=== PATIENT | male | born 1970 | race Caucasian/White ===

== ENCOUNTER 2020-10-21 15:10 | Day surgery (SDC) | payer OTHER ==
[2020-10-13 08:43] VITALS: BMI 29.6
[~2020-10-21 15:10] MED LIST: DEXAMETHASONE SOD PHOSPHATE 4 MG/ML 1 ML VIAL IV ONE; HYDROmorphone 0.5 MG/0.5 ML SYRINGE IVP PRN; LACTATED RINGERS 1,000 ML IV SCH; LIDOCAINE 1% (10MG/ML) FOR IV START INTRADERMA PRN; ONDANSETRON 4 MG/2 ML VIAL IVP ONE; SCOPOLAMINE 1.5MG/72HR PATCH TRANSDERM ONE
[2020-10-21] MEDS ORDERED: MIDAZOLAM 2 MG/2 ML VIAL IVP ONE (15:52)
[2020-10-21] MEDS ORDERED: ONDANSETRON 4 MG/2 ML VIAL ONE (15:55)
--- NOTE | 2020-10-21 16:12 | P.ANPRN ---
Procedure Note - Anesthesia - Nerve Block Performed Left Adductor Canal Single Time Out Performed: Yes Date of Procedure: 10/21/20 Location of Patient: PreOp Indication: Acute Post-Operative Pain, Requested by Surgeon Sedation Type: Sedate with meaningful contact maintained Preparation: Sterile Prep, Sterile Dressing Position: Supine Catheter: None Needle Types: Pajunk Needle Gauge: 20 Ultrasound used to visualize needle placement: Yes Ultrasound used to observe medication spread: Yes Injectate: 0.5% Ropivacaine (see comment for volume) (10 ml + decadron 2 mg) Blood Aspirated: No Pain Paresthesia on Injection Noted: No Resistance on Injection: Normal Image Stored and Saved: Yes Events: Uneventful and Well Tolerated Left Popliteal Single Time Out Performed: Yes Date of Procedure: 10/21/20 Procedure Start Time: 15:55 Procedure Stop Time: 16:05 Location of Patient: PreOp Indication: Acute Post-Operative Pain, Requested by Surgeon Sedation Type: Sedate with meaningful contact maintained Preparation: Sterile Prep, Sterile Dressing Position: Right Lateral Catheter: None Needle Types: Pajunk Needle Gauge: 20 Ultrasound used to visualize needle placement: Yes Ultrasound used to observe medication spread: Yes Injectate: 0.5% Ropivacaine (see comment for volume) (20 ml + decadron 2 mg) Blood Aspirated: No Pain Paresthesia on Injection Noted: No Resistance on Injection: Normal Image Stored and Saved: Yes Events: Uneventful and Well Tolerated
[2020-10-21] MEDS ORDERED: PROPOFOL 10 MG/ML 20 ML VIAL IV ONE (16:16)
[2020-10-21] MEDS ORDERED: SUCCINYLCHOLINE CHLORIDE 100 MG/5 ML SYR IV ONE (16:16)
[2020-10-21] MEDS ORDERED: MIDAZOLAM 2 MG/2 ML VIAL ONE (16:16)
[2020-10-21] MEDS ORDERED: LIDOCAINE 1% INJ 10MG/ML (20 ML MDV) ONE (16:16)
[2020-10-21] MEDS ORDERED: fentaNYL (PF) 50 MCG/ML 2 ML AMP ONE (16:16)
[2020-10-21] MEDS ORDERED: LACTATED RINGERS 1,000 ML IV ONE (17:37)
[2020-10-21 18:07] VITALS: RESP 16; TEMP 96.8
--- NOTE | 2020-10-21 19:30 | P.OP ---
Date of Procedure: 10/21/20 Preoperative Diagnosis: Achilles tendon rupture left leg Postoperative Diagnosis: Same Procedure(s) Performed: Achilles tendon repair left leg Implants: Arthrex Achilles PARS speed bridge Anesthesia: BRITTANYA Surgeon: Phani Magaña Estimated Blood Loss (ml): 3 Pathology: none sent Condition: stable Disposition: PACU Description of Procedure: Prior to the patient being brought to the operating room anesthesia administered a nerve block on the left lower extremity using ultrasonic guidance and placed in the patient under mild sedation. Then the patient was brought into the operative room. Timeout was taken to confirm correct patient identifiers, jaspreet ect procedure, correct site of surgery. When the room was in agreement the patient was induced and placed under general anesthesia. Then the patient was rolled onto the operating table in the prone position. Once anesthesia and staff were satisfied with the position and the patient a well-padded tourniquet was placed on the left thigh. A bump was placed underneath the ankles to keep the feet suspended off the table and then the left leg was prepped and draped in usual manner. The leg was exsanguinated, the knee flexed, and the tourniquet inflated to 250 mmHg. Attention was directed to the posterior aspect of the left leg where the Achilles tendon was palpated and there was a noted defect. Small transverse incision was made over the proximal stump of the Achilles rupture. Blunt dissection was taken down to level the peritenon. The proximal stump was bluntly from the surrounding peritenon. The Arthrex PARS jig was inserted so that the inner arms were between the peritenon and the tendon. Large clamp was used to grasp the proximal stump of the Achilles tendon and pull distally so that there was tension. Then a large straight needle was passed through hole #1 in the jig to lock the tendon and the jig together. Arthrex suture tape was then passed through holes two through four in the jig. Suture was then passed through hole #1 as a needle was removed. Once all suture was in place the PARS jig was pulled distally to pull the suture through the skin and placed along the Achilles tendon. Small incisions were then made over the calcaneus on the medial lateral sides of the Achilles insertion. Drill holes for the 4.75 mm swivel lock anchors were then made in the holes tapped. Suture from one of the sides of the tendon was then placed in the 4.75 mm anchor at which time it was aligned with the drill hole in the anchor advanced into the drill hole. On the other side the suture was passed through the 4.75 anchor and there was tension placed on the suture the tendon ends were brought together and ankle was slightly plantar flexed. While holding under tension the anchor was inserted into the drill hole and advanced to lock the suture in place. Once completed the ankle was taken through range of motion and there was good tension across the Achilles tendon. Mcdowell's test was negative. The suture was cut and then all wounds were irrigated with sterile saline. The peritenon was reapproximated with 4-0 Monocryl. And skin closure of all incisions was done with 4-0 Monocryl. The skin over the transverse incision at the rupture site was closed with 4-0 Stratafix using a running subarticular stitch. Dermal glue was applied over all the incisions allowed to dry then Steri-Strips are placed across incisions. Jumpstart dressing was placed over the the surgical site and then the area was wrapped in a dry sterile dressing. The tourniquet was released and capillary refill return to all digits on the left foot. The patient was then placed in a well-padded, well molded plaster posterior mold/sugar tong splint. The splint was held in slight plantar flexion while it dried. Once it was dried the patient is a rolled onto the transfer table at which point anesthesia was reversed and the patient was nontraumatically extubated. He was taken to recovery with vital signs stable.
[2020-10-21 19:58] VITALS: BP 156/93; PULSE 84
== END 2020-10-21 20:07 | disposition home or self-care (01) ==
LOC: OR 15:10
PROVIDERS: ATTEND Podiatrist
DX: S86.012A Strain of left Achilles tendon, initial encounter (principal); X50.9XXA Other and unspecified overexertion or strenuous movements or postures, initial encounter
CPT/HCPCS: 27650; 64447; 64999; 76942; C1713 ×2; J2250; J0690; J2405; J2001; J3010; J0330; J2704